=== PATIENT | female | born 1990 | race Two or more races ===

== ENCOUNTER 2024-08-20 20:01 | Inpatient (IN) | payer OTHER ==
[~2024-08-20] VITALS: Ht 160 cm; Wt 72.6 kg
[2024-08-20 19:46] VITALS: BP 139/68
[2024-08-20] MEDS ORDERED: RINGERS SOLUTION,LACTATED 1,000 ML IV SCH (20:15)
[2024-08-20 20:47] LABS: PH,URINE 6.5 (5.0-8.0); URINE APPEARANCE Cloudy; URINE BILIRRUBIN Negative (NEGATIVE); URINE BLOOD Large; URINE COLOR Yellow; URINE GLUCOSE Negative (NEGATIVE); URINE KETONE 15 (NEGATIVE); URINE LEUKOCYTE Large; URINE NITRATE Negative; URINE PROTEIN 30 (NEGATIVE)
[2024-08-20 20:48] LABS: URINE BACTERIA 1952.8 uL (0.0-1933); URINE EPITHELIAL CELLS 49.1 uL (0.0-38.8); URINE RBC 1598.8 uL (0.0-20.8); URINE WBC 1038.9 uL (0.0-23.2)
[2024-08-20 21:03] LABS: HEMATOCRIT 35.8 % (36.0-45.00); MEAN CELL VOLUME 88.1 fL (80.00-100.00); MEAN CORPUSCULAR HEMOGLOBIN 29.5 pg (27.00-32.0); MEAN CORPUSCULAR HGB CONC 33.5 g/dl (32.0-36.0); PLATELET COUNT 219 K/uL (150-450); RED BLOOD COUNT 4.06 M/uL (4.00-6.00); RED CELL DISTRIBUTION WIDTH 13.1 % (11.5-14.5)
[2024-08-20] MEDS ORDERED: PRENATAL TABLE1 EAC1 PO (21:33)
[2024-08-20 21:55] VITALS: BP 114/50
[2024-08-20 22:01] VITALS: BP 116/56
[2024-08-20 22:15] VITALS: BP 115/56
[2024-08-20] MEDS ORDERED: CHLORHEXIDINE GLUCONATE 120 ML BOTTLE TP SCH (22:15)
[2024-08-20] MEDS ORDERED: ACETAMINOPHEN 500 MG GEL..CAP PO PRN (22:15)
[2024-08-20] MEDS ORDERED: OXYTOCIN 1,000 ML IV SCH (22:15)
[2024-08-21 00:30] VITALS: BP 103/60
[2024-08-21 01:09] LABS: HEMATOCRIT 35.8 % (36.0-45.00); HEMOGLOBIN 12.3 g/dL (12.0-15.00); MEAN CELL VOLUME 86.9 fL (80.00-100.00); MEAN CORPUSCULAR HEMOGLOBIN 29.7 pg (27.00-32.0); MEAN CORPUSCULAR HGB CONC 34.2 g/dl (32.0-36.0); PLATELET COUNT 213 K/uL (150-450); RED BLOOD COUNT 4.12 M/uL (4.00-6.00); RED CELL DISTRIBUTION WIDTH 13.5 % (11.5-14.5)
[2024-08-21 01:26] VITALS: BP 103/64
[2024-08-21 07:49] VITALS: BP 100/62
[2024-08-21] MEDS ORDERED: PNV,CALCIUM 72/IRON/FOLIC ACID 1 TAB TABLET PO SCH (09:00)
[2024-08-21 16:14] VITALS: BP 102/60
[2024-08-22] VITALS: BP 102/66
[2024-08-22 08:11] VITALS: BP 100/69
== END 2024-08-22 14:46 | disposition home or self-care (01) | DRG 807 ==
LOC: OB/GYN 20:01 → LDR 20:01 → OB/GYN 22:11
PROVIDERS: ADMIT Obstetrics & Gynecology; ATTEND Obstetrics & Gynecology
PROC: 10E0XZZ Delivery of Products of Conception, External Approach (ICD-10-PCS; principal; 2024-08-20)
PROC: 4A1HXCZ Monitoring of Products of Conception, Cardiac Rate, External Approach (ICD-10-PCS; 2024-08-20)
DX: O80 Encounter for full-term uncomplicated delivery (principal); Z37.0 Single live birth; Z3A.38 38 weeks gestation of pregnancy; Z20.822 Contact with and (suspected) exposure to COVID-19